=== PATIENT | female | born 1965 | race Caucasian/White ===

== ENCOUNTER 2025-09-10 12:36 | Emergency (ER) | payer OTHER ==
[~2025-09-10] VITALS: Ht 154.9 cm; Wt 90.7 kg
[2025-09-10 12:36] VITALS: TEMP 98.3
[2025-09-10] MEDS ORDERED: HYDROCODONE/APAP 5/325MG TABLET ONE (13:48)
[2025-09-10] MEDS: HYDROCODONE/APAP 5/325MG TABLET PO ONE (13:58)
[2025-09-10] MEDS ORDERED: PROPOFOL 20 ML IV ONE (15:12)
[2025-09-10] MEDS ORDERED: PROPOFOL 200 MG/20 ML VIAL IV ONE (15:30)
[2025-09-10] MEDS: PROPOFOL 200 MG/20 ML VIAL IV ONE (15:33)
[2025-09-10] MEDS ORDERED: ACET650T10 PO (16:10)
[2025-09-10] MEDS ORDERED: HYDR-4303 PO ×2 (16:10→16:15)
[2025-09-10] MEDS ORDERED: ACET-73 PO (16:15)
[2025-09-10] MEDS ORDERED: HYDR-4209 PO (16:17)
[2025-09-10 17:58] VITALS: BP 117/99; O2SAT 94
== END 2025-09-10 16:38 | disposition home or self-care (01) ==
LOC: ER 12:41
DX: M25.531 Pain in right wrist (principal); I11.9 Hypertensive heart disease without heart failure; H54.3 Unqualified visual loss, both eyes; H40.9 Unspecified glaucoma; Z88.1 Allergy status to other antibiotic agents; Z88.2 Allergy status to sulfonamides
CPT/HCPCS: 25605; 99285; 99152; 73130; 73564; 73110 ×2; J2704; J7030; G0500